=== PATIENT | male | born 1975 | race Caucasian/White ===

== ENCOUNTER 2020-04-30 23:33 | Emergency (ER) | payer MEDICAID ==
[~2020-04-30] VITALS: Ht 167.6 cm; Wt 97.1 kg
[2020-04-30 23:40] VITALS: BP 138/92
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
--- NOTE | 2020-05-01 00:34 | NUR ---
PLACED CALL TO [facility] TO REPORT INCIDENT. INCIDENT # [id number] DATED: 05/01/2020
--- NOTE | 2020-05-01 00:41 | NUR ---
PT TAKEN TO CT VIA W/C.
--- NOTE | 2020-05-01 00:41 | NUR ---
PT RETURNED FROM CT AT THIS TIME.
[2020-05-01 02:10] VITALS: BP 138/92
== END 2020-05-01 02:10 | disposition home or self-care (01) ==
LOC: MED 23:33
DX: S09.90XA Unspecified injury of head, initial encounter (principal); E11.9 Type 2 diabetes mellitus without complications; Y04.2XXA Assault by strike against or bumped into by another person, initial encounter; Y93.89 Activity, other specified; Y92.89 Other specified places as the place of occurrence of the external cause; Y99.8 Other external cause status
CPT/HCPCS: 70450; 99284